=== PATIENT | male | born 1970 | race Caucasian/White ===

== ENCOUNTER → 2021-03-17 | Outpatient (CLI) | payer OTHER ==
[~2021-03-17] MED LIST: DIAZ5 PO; NAPR550 PO; OXYACE5T PO; OXYC5 PO; TIZA4 PO
== END | disposition home or self-care (01) ==
LOC: LAB 17:17 → LAB SHORT 17:17
DX: M54.5 Low back pain (principal)
CPT/HCPCS: 87086